=== PATIENT | male | born 1975 | race Two or more races ===

== ENCOUNTER 2022-06-08 19:11 | Emergency (ER) | payer MEDICAID, OTHER ==
[~2022-06-08] VITALS: Ht 172.7 cm; Wt 68.0 kg
--- NOTE | 2022-06-08 19:30 | NUR ---
[id number] FROM HOME C/O SYNCOPAL EPISODE FOR 30 SECS AT 1930. - TRAUMA. C/O R KNEE PAIN PT A/OX4. TOLERATING R/A WELL WITH NO RESP DISTRESS. CONNECTED PT TO POX AND MONITOR. SAFETY MEASURES IN PLACE.
[2022-06-08] MEDS ORDERED: HYDROMORPHONE 1 MG/1 ML DISP.SYRIN ONE ×3 (20:01→22:53)
[2022-06-08] MEDS ORDERED: ONDANSETRON HCL/PF 4 MG/2 ML VIAL ONE (20:01)
--- NOTE | 2022-06-08 20:10 | NUR ---
EMT AT PT'S BEDSIDE
[2022-06-08] MEDS: ONDANSETRON HCL/PF 4 MG/2 ML VIAL IVP ONE (20:13)
[2022-06-08] MEDS: IV NS 0.9% 1,000 ML BAG IV ONE ×2 (20:13→21:08)
[2022-06-08] MEDS: HYDROMORPHONE INJ 2 MG/ML DISP.SYRIN IV ONE (20:13)
--- NOTE | 2022-06-08 20:13 | NUR ---
BS 126
--- NOTE | 2022-06-08 20:14 | NUR ---
PT TAKEN TO CT VIA SHAHANA
--- NOTE | 2022-06-08 20:14 | NUR ---
LAC #18G S/L BLOOD COLLECTED AND SENT TO LAB
[2022-06-08 20:25] LABS: BASOPHILS # (AUTO) 0.1 K/uL (0.0-0.2); BASOPHILS % (AUTO) 0.6 % (0.0-2.0); EOSINOPHILS % (AUTO) 8.1 % (0.0-6.0); HEMATOCRIT 31 % (39-51); HEMOGLOBIN 10.3 g/dL (13.5-17.5); LYMPHOCYTES # (AUTO) 2.1 K/uL (0.8-4.8); LYMPHOCYTES % (AUTO) 12.4 % (20.0-44.0); MEAN CORPUSCULAR HGB CONC 34 g/dl (31.0-36.0); MEAN CORPUSCULAR VOLUME 84 fL (80-96); MONOCYTES # (AUTO) 1.2 K/uL (0.1-1.30); MONOCYTES % (AUTO) 6.9 % (2.0-12.0); NEUTROPHILS # (AUTO) 12.4 K/uL (1.8-8.9); PLATELET COUNT (AUTO) 266 K/uL (150-450); RED BLOOD CELL COUNT(AUTO) 3.63 MIL/uL (4.5-6.0); WHITE BLOOD COUNT (AUTO) 17.2 K/uL (4.3-11.0)
--- NOTE | 2022-06-08 20:45 | NUR ---
PROVIDED PT WITH URINAL AND URINE CUP; AWAITING URINE SAMPLE
[2022-06-08 20:53] LABS: CALCIUM, SERUM 9.2 mg/dL (8.5-10.1); CREATININE 1.1 mg/dL (0.6-1.3)
[2022-06-08 20:58] LABS: ALBUMIN 2.5 g/dL (3.4-5.0); BILIRUBIN,DIRECT 0.1 mg/dL (0.0-0.2); BILIRUBIN,TOTAL 0.4 mg/dL (0.2-1.0); TOTAL PROTEIN, SERUM 6.9 g/dL (6.4-8.2)
[2022-06-08] MEDS: HYDROMORPHONE 1 MG/1 ML DISP.SYRIN IV ONE ×2 (21:38→22:59)
--- NOTE | 2022-06-08 21:38 | NUR ---
VERBAL ORDER FROM DR. MCKINNEY FOR DILAUDID 1MG IV ADMINISTERED ORDERED
--- NOTE | 2022-06-08 21:39 | NUR ---
PT NOT ABLE TO URINATE AT THIS TIME. REFUSED STRAIGHT CATH.
--- NOTE | 2022-06-08 22:10 | NUR ---
DR LOZANO ON THE PHONE WITH DR FLORES, NEUROSURGON
[2022-06-08] MEDS ORDERED: PRED50TA PO (22:19)
[2022-06-08] MEDS ORDERED: DEXAMETHASONE SOD PHOSPHATE 4 MG/ML VIAL ONE (22:26)
[2022-06-08] MEDS: DEXAMETHASONE SOD PHOSPHATE 4 MG in IV D5W 50 ML IV ONE (22:34)
--- NOTE | 2022-06-08 22:34 | NUR ---
URINE COLLECTED AND SENT TO LAB
[2022-06-08 22:58] LABS: BILIRUBIN,URINE NEGATIVE (NEGATIVE); COLOR,URINE YELLOW (YELLOW); LEUKOCYTE ESTERASE ,URINE NEGATIVE (NEGATIVE); NITRITE, URINE NEGATIVE (NEGATIVE); PROTEIN,URINE NEGATIVE (NEGATIVE); UGLUCOSE NEGATIVE (NEGATIVE)
[2022-06-08 23:10] LABS: BACTERIA,URINE Rare /HPF (None Seen); SQUAMOUS EPITHELIAL CELL,UR Few /HPF (None Seen); WBC,URINE 0-2 /HPF (0-3)
--- NOTE | 2022-06-08 23:29 | NUR ---
Patient discharged to home in stable condition. Written and verbal after care instructions given. Patient verbalizes understanding of instruction. IV removed. Catheter intact and site benign. Pressure and 4x4 applied to site. No bleeding noted.
[2022-06-09 02:06] VITALS: BP 122/79
== END 2022-06-09 02:10 | disposition home or self-care (01) ==
LOC: ER 19:13
DX: G93.6 Cerebral edema (principal); C34.90 Malignant neoplasm of unspecified part of unspecified bronchus or lung; C79.31 Secondary malignant neoplasm of brain; Z86.73 Personal history of transient ischemic attack (TIA), and cerebral infarction without residual deficits; G57.91 Unspecified mononeuropathy of right lower limb; Z92.3 Personal history of irradiation; E78.00 Pure hypercholesterolemia, unspecified; D64.9 Anemia, unspecified; E87.1 Hypo-osmolality and hyponatremia; R74.8 Abnormal levels of other serum enzymes; Z20.822 Contact with and (suspected) exposure to COVID-19
CPT/HCPCS: 99285; 70450; 96365; 71045; 96361; 96375; 87426; 93005; 72170; 96376; 72131; 85025; 80048; 80076; 81001; 36415; 82962; J1100; J2405; J7060; J7030 ×2; J1170 ×3; C9803

== ENCOUNTER 2022-07-25 01:28 | Inpatient (IN) | payer MEDICAID, OTHER ==
[~2022-07-25] VITALS: Ht 182.9 cm; Wt 67.1 kg
[~2022-07-25 01:28] MED LIST: PRED50TA PO
--- NOTE | 2022-07-25 02:47 | NUR ---
DAIRY HUSBANDMAN AT PT'S BEDSIDE
--- NOTE | 2022-07-25 02:49 | NUR ---
DR HEIDI RAMIREZ AT PT'S BEDSIDE FOR EVAL
[2022-07-25] MEDS ORDERED: MORPHINE SULFATE INJ 4 MG/ML DISP.SYRIN ONE (03:04)
[2022-07-25] MEDS ORDERED: ONDANSETRON HCL/PF 4 MG/2 ML VIAL ONE (03:04)
[2022-07-25] MEDS ORDERED: IV NS 0.9% 250 ML IV ONE (03:06)
[2022-07-25] MEDS ORDERED: IOHEXOL-350 100 ML VIAL IV ONE (03:06)
[2022-07-25] MEDS ORDERED: CT SWABBABLE VALVE TRANS SET 1 EA INFUS.SET MC ONE (03:07)
--- NOTE | 2022-07-25 03:09 | NUR ---
RFA #18G S/L BLOOD COLLECTED AND SENT TO LAB. ESTHETICIAN/OWNER AT PT'S BEDSIDE
--- NOTE | 2022-07-25 03:14 | NUR ---
COVID ANTIGEN SWAB COLLECTED AND SENT TO LAB
[2022-07-25 03:23] LABS: BASOPHILS # (AUTO) 0.1 K/uL (0.0-0.2); BASOPHILS % (AUTO) 0.3 % (0.0-2.0); HEMATOCRIT 37 % (39-51); HEMOGLOBIN 11.9 g/dL (13.5-17.5); LYMPHOCYTES # (AUTO) 3.7 K/uL (0.8-4.8); LYMPHOCYTES % (AUTO) 10.8 % (20.0-44.0); MEAN CORPUSCULAR HGB CONC 32 g/dl (31.0-36.0); MEAN CORPUSCULAR VOLUME 85 fL (80-96); MONOCYTES # (AUTO) 0.9 K/uL (0.1-1.30); MONOCYTES % (AUTO) 2.8 % (2.0-12.0); NEUTROPHILS # (AUTO) 28.7 K/uL (1.8-8.9); NEUTROPHILS % (AUTO) 84.1 % (43.0-81.0); PLATELET COUNT (AUTO) 310 K/uL (150-450); RED BLOOD CELL COUNT(AUTO) 4.29 MIL/uL (4.5-6.0)
[2022-07-25 03:29] LABS: WHITE BLOOD COUNT (AUTO) 34.1 K/uL (4.3-11.0)
[2022-07-25] MEDS ORDERED: ONDANSETRON HCL/PF 4 MG/2 ML VIAL IV ONE (03:30)
[2022-07-25] MEDS ORDERED: IV NS 0.9% 1,000 ML BAG IV ONE (03:30)
[2022-07-25] MEDS ORDERED: MORPHINE SULFATE INJ 2 MG/ML DISP.SYRIN IV ONE (03:30)
[2022-07-25 03:40] LABS: CALCIUM, SERUM 9.5 mg/dL (8.5-10.1); CARBON DIOXIDE 29 mmol/L (21-32); CHLORIDE 94 mmol/L (98-107); CREATININE 0.6 mg/dL (0.6-1.3); GLUCOSE 105 mg/dL (74-106); POTASSIUM 4.3 mmol/L (3.5-5.1); SODIUM SERUM 131 mmol/L (136-145); UREA NITROGEN, BLOOD 27 mg/dL (7-18)
[2022-07-25 03:46] LABS: ALANINE AMINOTRANSFERASE 213 U/L (12-78); ALBUMIN 2.5 g/dL (3.4-5.0); ALKALINE PHOSPHATASE 621 U/L (46-116); ASPARTATE AMINOTRANSFERASE 39 U/L (15-37); BILIRUBIN,DIRECT 0.2 mg/dL (0.0-0.2); BILIRUBIN,TOTAL 0.4 mg/dL (0.2-1.0)
--- NOTE | 2022-07-25 03:53 | NUR ---
PT TAKEN TO CT VIA SHAHANA
[2022-07-25] MEDS ORDERED: ASPIRIN 325 MG TABLET PO ONE (04:30)
[2022-07-25] MEDS ORDERED: ASPIRIN EC 325 MG TABLET.DR PO ONE (04:50)
[2022-07-25 05:02] LABS: BAND % (MANUAL) 8 % (0.0-5.0); EOSINOPHILS % (MANUAL) 2 % (0-4); LYMPHOCYTES % (MANUAL) 16 % (16-48); MONOCYTES % (MANUAL) 9 % (0-11.0); NEUTROPHILS % (MANUAL) 65 (42-76)
--- NOTE | 2022-07-25 05:29 | NUR ---
EPIC PANEL PAGED
--- NOTE | 2022-07-25 05:55 | NUR ---
DR GORDON ON PHONE CALL WITH [employer]LEXAN[employer]CH[employer]
[2022-07-25] MEDS ORDERED: ACETAMINOPHEN 325 MG TABLET PO PRN (06:30)
[2022-07-25] MEDS ORDERED: MAGNESIUM HYDROXIDE 30 ML UDC PO PRN (06:30)
[2022-07-25] MEDS ORDERED: ONDANSETRON HCL/PF 4 MG/2 ML VIAL IVP PRN (06:30)
[2022-07-25] MEDS ORDERED: Z GUARD REMEDY 4 OZ OINT TP PRN (06:30)
[2022-07-25] MEDS ORDERED: HYDROMORPHONE INJ 2 MG/ML DISP.SYRIN IV PRN (06:30)
[2022-07-25] MEDS ORDERED: TEMAZEPAM 15 MG CAPSULE PO PRN (06:30)
--- NOTE | 2022-07-25 07:15 | NUR ---
RECEIVED PT FROM CHELSY FINE PT ASLEEPY RESPIRATION SPONT AND EASY MOTHER AT BED SIDE
[2022-07-25] MEDS: PANTOPRAZOLE 40 MG TABLET.DR PO SCH (07:30)
--- NOTE | 2022-07-25 08:22 | NUR ---
report given to Liane FINE
--- NOTE | 2022-07-25 08:52 | NUR ---
moved to inpatient room safely per acls protocol .
--- NOTE | 2022-07-25 10:00 | NUR ---
admission notes Received patient via gurney from ER accompanied by ER staff. Patient is a/ox2-3 with no respiratory or cardiac distress noted. Patient's vitals taken and recorded. Put on cardiac monitoring with reading of SR 80. On saline lock at rfa G 18, patent and intact. Dr Russell made aware of the admission. Safety precautions maintained. Kept call light within at reach.Kept bed on lower locked position. kept side rails up. Will continue to monitor.
[2022-07-25] MEDS: IV NS 0.9% 1,000 ML IV PRN (10:28)
[2022-07-25] MEDS: HYDROMORPHONE INJ 2 MG/ML DISP.SYRIN IV PRN ×3 (11:20→22:15)
[2022-07-25 12:00] VITALS: BP 112/73
[2022-07-25] MEDS ORDERED: PANT40TA49 PO (12:37)
[2022-07-25] MEDS ORDERED: DICL100G34 TP (12:37)
[2022-07-25] MEDS ORDERED: CHOL100043 PO (12:37)
[2022-07-25] MEDS ORDERED: DEXA4TAB PO (12:37)
[2022-07-25] MEDS ORDERED: LEVE750T10 PO (12:37)
[2022-07-25] MEDS ORDERED: MIRT-90 PO (12:37)
[2022-07-25] MEDS ORDERED: GABA300C PO (12:37)
[2022-07-25] MEDS ORDERED: ENOX60DI8 SQ (12:37)
[2022-07-25] MEDS ORDERED: HYDR2TAB7 PO (12:37)
[2022-07-25] MEDS ORDERED: POLY17PO4 PO (12:37)
[2022-07-25] MEDS ORDERED: FOLI0.4T6 PO (12:37)
[2022-07-25] MEDS ORDERED: SENN-261 PO (12:37)
[2022-07-25] MEDS ORDERED: METH5TAB2 PO (12:37)
[2022-07-25] MEDS ORDERED: ATOR40TA PO (12:37)
[2022-07-25] MEDS ORDERED: CALC500T52 PO (12:37)
[2022-07-25] MEDS ORDERED: SULF1TAB48 PO (12:37)
[2022-07-25] MEDS ORDERED: NALO4SPR BNOSTRILS (12:37)
[2022-07-25] MEDS ORDERED: HYDROMORPHONE HCL 2 MG TABLET PO PRN (15:30)
[2022-07-25] MEDS ORDERED: DICLOFENAC TOPICAL 100 GM TUBE TP PRN (15:30)
[2022-07-25] MEDS: CALCIUM CARBONATE (1250) 500 MG TABLET PO SCH (17:57)
[2022-07-25] MEDS: LEVETIRACETAM (250 MG) 250 MG TABLET PO SCH (17:57)
[2022-07-25] MEDS ORDERED: SULFAMETH/TRIMETH 800/160 MG 1 UDTAB TABLET PO SCH (18:00)
[2022-07-25] MEDS ORDERED: NALOXONE HCL 0.4 MG/ML AMPUL IV PRN (18:00)
[2022-07-25] MEDS ORDERED: DEXAMETHASONE 4 MG TABLET PO SCH (18:00)
[2022-07-25] MEDS: DEXAMETHASONE 4 MG TABLET PO SCH (18:02)
--- NOTE | 2022-07-25 19:15 | NUR ---
alphonso rn opening received patient in bed, very anxious, 1 family member at bedside. no s/s of apparent distress on room air, c/o severe pain-- will medicate. reading NSR on the tele monitor reading in the 85 bpm. R.FA #18g running ns @75mls/hr. safety in place-- bed in lowest, locked position, call light within reach, side rails up x2, bed alarm in place. will continue with patient's plan of care.
[2022-07-25] MEDS: ASPIRIN EC 81 MG TABLET.DR PO SCH (20:03)
[2022-07-25] MEDS: METHADONE HCL 10 MG TABLET PO SCH (20:04)
[2022-07-25] MEDS: GABAPENTIN 400 MG CAPSULE PO SCH (20:04)
[2022-07-25] MEDS: ENOXAPARIN SODIUM 80 MG/0.8 ML DISP.SYRIN SQ SCH (20:07)
--- NOTE | 2022-07-25 20:25 | NUR ---
Closing notes Patient awake a/ox2-3 with no respiratory or cardiac distress noted. On cardiac monitoring with reading of SR 85. IV access at rfa G18 with NS at 75ml/hr, patent and intact. Notified Dustin of the home medications that was brought by family and notified Dr. Russell to notified the medications right away. All due medications was given. Safety precautions maintained. Kept call light within at reach.Kept bed on lower locked position. kept side rails up. Endorsed to next nurse.
--- NOTE | 2022-07-25 20:28 | NUR ---
noc rn note scheduled 2100 of methadone 5mg and gabapentin 400mg given early, patient was c/o pain already during elin report 02/17 in his chest, non-radiating per patient.
--- NOTE | 2022-07-25 20:29 | NUR ---
noc rn note-- OMNICELL DISCREPANCY pulled out 2 10mg Methadone Tab instead of 1, there should be 13 tabs of Methadone right now in the omnicell with the one I took, made charge nurse aware. Crystal to solve discrepancy with me later. 0.5 tab wasted with BABATUNDE Villanueva in the proper disposal bin, 5mg given to patient.
[2022-07-25] MEDS ORDERED: METHADONE HCL 5 MG TABLET PO SCH (21:00)
[2022-07-25 21:06] VITALS: BP 120/82
--- NOTE | 2022-07-25 21:17 | NUR ---
noc rn note patient still c/o 6/10 pain, now on his back, refused non-pharmacological way to relieved pain like repositioning or heat pack, per patient "It doesn't help", even wanting to get the IV dilaudid. Patient teaching about the order and that pain 4-7 he has a PO dose of dilaudid 2mg and IV for severe pain. patient teaching about risk and benefit of medication done. patient passive about teaching. reinforcement needed.
[2022-07-25] MEDS ORDERED: MIRTAZAPINE 15 MG TABLET PO SCH (22:00)
[2022-07-25] MEDS ORDERED: ATORVASTATIN 40 MG TABLET PO SCH (22:00)
--- NOTE | 2022-07-25 22:21 | NUR ---
noc rn note patient still c/o 10/10 pain on his right chest now. Dr. Berman just saw patient. Asked Dr. Berman for advice, Doctor Ok'd to give Dilaudid IV 1 hour after the Dilaudid PO. Patient and on bed side made aware of fatality of taking too much Dilaudid. and patient acknowledged. will re-assess.
--- NOTE | 2022-07-25 22:32 | NUR ---
noc rn note patient request for something for BM. Given Milk of Magnesia as ordered PRN for constipation. Last BM yesterday night per patient.
--- NOTE | 2022-07-25 22:54 | NUR ---
noc rn note-- OMNICELL DISCREPANCY Charge Nurse, Crystal returned 1 tab of Methadone that I took under her name. There are 13 tabs of Methadone now in the omnicell. Discrepancy from the AM under Eleonora Isaacs name, will solve later per Charge Nurse since she cannot Resolve it right now.
--- NOTE | 2022-07-25 23:21 | NUR ---
noc rn note-- OMNICELL DISCREPANCY Discrepancy resolved with Nursing Composing Room Machinist Camilo Baldwin and Charge Nurse Crystal. Current and ACTUAL count in omnicell is 13 tabs of Methadone.
[2022-07-26] VITALS: BP 105/70
[2022-07-26] MEDS: HYDROMORPHONE INJ 2 MG/ML DISP.SYRIN IV PRN ×2 (03:39→08:12)
[2022-07-26] MEDS: IV NS 0.9% 1,000 ML IV PRN (03:45)
--- NOTE | 2022-07-26 03:50 | NUR ---
noc rn note Patient given the Authorization disclosure of health information to sign to send to [facility] [place], Per patient he will sign Later in the am. Emphasized on the importance of getting his medical records from [place], patient active in listening and acknowledged. unsigned authorization with patient.
--- NOTE | 2022-07-26 03:59 | NUR ---
noc rn note Patient c/o severe pain 10/10 on his right chest. Given Dilaudid 2mg IV as ordered PRN. V/S stable.
[2022-07-26 04:00] VITALS: BP 115/73
[2022-07-26] MEDS: GABAPENTIN 400 MG CAPSULE PO SCH ×2 (05:12→12:50)
[2022-07-26] MEDS: METHADONE HCL 10 MG TABLET PO SCH ×2 (05:12→14:14)
[2022-07-26 06:31] LABS: BASOPHILS # (AUTO) 0.1 K/uL (0.0-0.2); BASOPHILS % (AUTO) 0.4 % (0.0-2.0); EOSINOPHILS % (AUTO) 0.8 % (0.0-6.0); HEMATOCRIT 36 % (39-51); HEMOGLOBIN 11.3 g/dL (13.5-17.5); LYMPHOCYTES # (AUTO) 2.3 K/uL (0.8-4.8); LYMPHOCYTES % (AUTO) 8.2 % (20.0-44.0); MEAN CORPUSCULAR HGB CONC 32 g/dl (31.0-36.0); MEAN CORPUSCULAR VOLUME 87 fL (80-96); MONOCYTES # (AUTO) 1.2 K/uL (0.1-1.30); MONOCYTES % (AUTO) 4.3 % (2.0-12.0); NEUTROPHILS # (AUTO) 24.4 K/uL (1.8-8.9); NEUTROPHILS % (AUTO) 86.3 % (43.0-81.0); PLATELET COUNT (AUTO) 291 K/uL (150-450); RED BLOOD CELL COUNT(AUTO) 4.11 MIL/uL (4.5-6.0); WHITE BLOOD COUNT (AUTO) 28.3 K/uL (4.3-11.0)
[2022-07-26 06:46] LABS: CARBON DIOXIDE 26 mmol/L (21-32); CHLORIDE 98 mmol/L (98-107); CREATININE 0.6 mg/dL (0.6-1.3); GLUCOSE 145 mg/dL (74-106); MAGNESIUM 2.6 mg/dL (1.8-2.4); POTASSIUM 4.8 mmol/L (3.5-5.1); SODIUM SERUM 133 mmol/L (136-145); UREA NITROGEN, BLOOD 29 mg/dL (7-18)
[2022-07-26 06:50] LABS: CALCIUM, SERUM 9.2 mg/dL (8.5-10.1)
--- NOTE | 2022-07-26 06:52 | NUR ---
noc rn closing note Patient in bed with eyes closed, easy to arouse. no s/s of apparent distress on room air. pain managed with medications. IV NS running @75mls/hr. all needs attended. all scheduled meds administered. safety kept in place the whole shift. will endorse to morning shift rn for continuity of patient care.
[2022-07-26 07:27] LABS: IRON, SERUM 24 ug/dl (50-175); TOTAL IRON BINDING CAPACITY 282 ug/dl (250-450)
[2022-07-26] MEDS ORDERED: PANTOPRAZOLE 40 MG TABLET.DR PO SCH (07:30)
[2022-07-26] MEDS: PANTOPRAZOLE 40 MG TABLET.DR PO SCH (07:35)
--- NOTE | 2022-07-26 07:50 | NUR ---
Opening notes Patient awake a/ox2-3,with beside him. No respiratory or cardiac distress noted. On room air, tolerating well. On cardiac monitoring with reading of SR 70. IV access at rfa G18 with NS at 75ml/hr, patent and intact. complaining of severe pain, will give pain meds. Made a follow up to sign authorization to request patient's medical histoy/information to [facility], Patient stated he will sign it later, will follow up again. Safety precautions maintained. Kept call light within at reach.Kept bed on lower locked position. kept side rails up. WIll continue to monitor.
[2022-07-26 07:57] LABS: CHOLESTEROL 211 mg/dL (<200); FERRITIN 1499 ng/mL (8-388); HDL CHOLESTEROL 65 mg/dL (40-60); LDL 119 mg/dL (0-99); THYROID STIMULATING HORMONE 0.725 uIU/mL (0.358-3.74)
[2022-07-26 08:00] VITALS: BP 104/69
[2022-07-26 08:13] LABS: TRIGLYCERIDES > 150 mg/dL (30-150)
[2022-07-26] MEDS: DEXAMETHASONE 4 MG TABLET PO SCH ×2 (08:13→16:00)
[2022-07-26] MEDS: ASPIRIN EC 81 MG TABLET.DR PO SCH (08:13)
[2022-07-26] MEDS: LEVETIRACETAM (250 MG) 250 MG TABLET PO SCH ×2 (08:13→16:00)
[2022-07-26] MEDS: CALCIUM CARBONATE (1250) 500 MG TABLET PO SCH ×2 (08:14→15:59)
[2022-07-26] MEDS: ENOXAPARIN SODIUM 80 MG/0.8 ML DISP.SYRIN SQ SCH (08:16)
[2022-07-26] MEDS ORDERED: predniSONE 20 MG TABLET PO SCH (09:00)
[2022-07-26] MEDS ORDERED: predniSONE 50 MG TABLET PO SCH (09:00)
[2022-07-26] MEDS ORDERED: SENNOSIDES 8.6 MG TABLET PO SCH (09:00)
[2022-07-26] MEDS ORDERED: POLYETHYLENE GLYCOL 3350 17 GM POWD.PACK PO SCH (09:00)
[2022-07-26] MEDS ORDERED: FOLIC ACID 1 MG TABLET PO SCH (09:00)
[2022-07-26] MEDS ORDERED: CHOLECALCIFEROL 1,000 UNIT TABLET (VIT D3) PO SCH (09:00)
[2022-07-26] MEDS ORDERED: HYDROMORPHONE HCL 2 MG TABLET PO PRN (09:30)
[2022-07-26 10:19] LABS: BILIRUBIN,URINE NEGATIVE (NEGATIVE); COLOR,URINE YELLOW (YELLOW); LEUKOCYTE ESTERASE ,URINE NEGATIVE (NEGATIVE); NITRITE, URINE NEGATIVE (NEGATIVE); PH,URINE 6.5 (5.0-8.0); PROTEIN,URINE NEGATIVE (NEGATIVE); UGLUCOSE NEGATIVE (NEGATIVE); UROBILINOGEN,URINE 0.2 EU/dL (0.2)
[2022-07-26 10:24] LABS: CREATININE, URINE 29.6 MG/DL (30.0-125.0)
[2022-07-26] MEDS: HYDROMORPHONE HCL 2 MG TABLET PO SCH ×2 (12:49→15:59)
[2022-07-26] MEDS ORDERED: HYDR2TAB7 PO (16:04)
--- NOTE | 2022-07-26 17:56 | NUR ---
RN NOTES PATIENT DISCHARGED TO HOME IN STABLE CONDITION, A/OX4. ON RA, TOLERATING WELL. VITALS TAKEN, STABLE AND RECORDED. PATIENT WOUND PHOTOS TAKEN YESTERDAY, DRESSING DONE ASEPTICALLY. DENIES PAIN AT TIME OF DISCHARGE. ALL BELONGINGS ACCOUNTED TO THE PATIENT. DISCHARGED INSTRUCTIONS RELAYED TO PATIENT AND PATIENT'S . IV ACCESS REMOVED ASEPTICALLY. PATIENT LEFT THE UNIT VIA WHEELCHAIR ACCOMPANIED BY AND EVELIN LAM. DISCHARGED.
[2022-07-27 11:06] LABS: IMMUNOGLOBULIN A, SERUM 257 mg/dL (90-386); IMMUNOGLOBULIN G, SERUM 660 mg/dL (603-1613); IMMUNOGLOBULIN M, SERUM 89 mg/dL (20-172)
[2022-07-28 17:07] LABS: *SPE A/G RATIO 0.6 (0.7-1.7); *SPE ALPHA-1-GLOBULIN 0.6 g/dL (0.0-0.4); *SPE ALPHA-2-GLOBULIN 1.3 g/dL (0.4-1.0); *SPE BETA GLOBULIN 1.3 g/dL (0.7-1.3); *SPE M-SPIKE Not Observed g/dL (Not Observed)
[2022-08-01] MEDS ORDERED: DEXAMETHASONE 1 MG TABLET PO SCH (09:00)
[2022-08-08] MEDS ORDERED: DEXAMETHASONE 1 MG TABLET PO SCH (09:00)
[2022-08-15] MEDS ORDERED: DEXAMETHASONE 1 MG TABLET PO SCH (09:00)
[2022-08-22] MEDS ORDERED: DEXAMETHASONE 1 MG TABLET PO SCH (09:00)
== END 2022-07-26 18:00 | disposition home or self-care (01) | DRG 136 ==
LOC: ER 01:36 → TELE 08:39
PROVIDERS: ADMIT Internal Medicine; ATTEND Internal Medicine
DX: C34.91 Malignant neoplasm of unspecified part of right bronchus or lung (principal); N17.0 Acute kidney failure with tubular necrosis; E43 Unspecified severe protein-calorie malnutrition; I21.A1 Myocardial infarction type 2; C79.71 Secondary malignant neoplasm of right adrenal gland; C79.72 Secondary malignant neoplasm of left adrenal gland; E88.09 Other disorders of plasma-protein metabolism, not elsewhere classified; E87.1 Hypo-osmolality and hyponatremia; E86.1 Hypovolemia; C79.31 Secondary malignant neoplasm of brain; Z20.822 Contact with and (suspected) exposure to COVID-19; Z86.73 Personal history of transient ischemic attack (TIA), and cerebral infarction without residual deficits; E78.00 Pure hypercholesterolemia, unspecified; Z79.899 Other long term (current) drug therapy; D72.829 Elevated white blood cell count, unspecified; R74.01 Elevation of levels of liver transaminase levels; R79.89 Other specified abnormal findings of blood chemistry; Z79.01 Long term (current) use of anticoagulants; Z92.3 Personal history of irradiation; Z95.828 Presence of other vascular implants and grafts; Z86.711 Personal history of pulmonary embolism; D64.9 Anemia, unspecified; I05.9 Rheumatic mitral valve disease, unspecified; C78.7 Secondary malignant neoplasm of liver and intrahepatic bile duct; R59.0 Localized enlarged lymph nodes; C34.92 Malignant neoplasm of unspecified part of left bronchus or lung
CPT/HCPCS: 36415; 70450-TC; 80048-TC; 80061-TC; 80076-TC; 82378; 82570-TC; 82607-TC; 82728-TC; 82784; 82962-TC; 83540-TC; 83735-TC; 84100-TC; 84155; 84165; 84300-TC; 84443-TC; 84484-TC; 85025-TC; 85730-TC; 86334; 87040-TC; 87081-TC; 93307-TC; A4223; A6403; C9803; G0378; J1170; J1650; J2270; J2405; J7030; J7050; J8540; Q9967